=== PATIENT | female | born 1955 | race Caucasian/White ===

== ENCOUNTER → 2017-11-10 | Outpatient (CLI) | payer MEDICARE ==
[~2017-11-10] MED LIST: ALBU3IS INH; ALBU90OI6; ALBU90OI6 INH; AZIT250 PO; BUDE6HFA INH; CALCAVITD PO; CITA20 PO; Calcium 1,2001 EACH PO; ESTNOR PO; FISH1000 PO; GUAI600T33 PO; HYDCHL25 PO; HYDHOMSY PO; HYDR1TAB94 PO; LOSA50 PO; LOSHYD100 PO; MULVIT PO; NAPR500 PO; PRAM.5 PO; PRED10 PO; Pravachol20 MG PO; Prednisone20 MG PO; TIOT18 INH; UBID100 PO; Ventolin5 MG/1 ML INH; Zithromax250 MG PO
[2017-11-10 19:28] LABS: Anion Gap 4 mmol/L (6-16); Blood Urea Nitrogen 16 mg/dL (8-24); Bun/Creatinine Ratio 24.2 (12.0-20.0); CO2, Blood 35 mmol/L (21-32); Calcium, Blood 9.3 mg/dL (8.5-10.1); Chloride, Blood 100 mmol/L (98-108); Creatinine, Blood 0.66 mg/dL (0.40-1.00); Glomerular Filtration Rate >60 (60-); Glucose, Blood 93 mg/dL (70-99); Potassium, Blood 3.7 mmol/L (3.5-5.5); Sodium, Blood 139 mmol/L (136-145)
== END | disposition home or self-care (01) ==
LOC: LAB 17:17 → LAB SHORT 17:17
PROVIDERS: Hospitalist
DX: I10 Essential (primary) hypertension (principal)
CPT/HCPCS: 80048

== ENCOUNTER 2018-09-04 17:46 | Emergency (ER) | payer MEDICARE ==
[~2018-09-04] VITALS: Ht 170.2 cm; Wt 104.3 kg
[2018-09-04 18:24] LABS: Base Excess Venous 23.9 mmol/L; Bicarbonate Venous 44.8 mmol/L (24.0-30.0); PCO2 Venous 74.1 mmHg (38-42); PO2 Venous 66.1 mmHg (38-42); pH Blood Venous 7.42 (7.34-7.37)
[2018-09-04 18:33] LABS: BASOPHILS ABSOLUTE AUTO 0.01 K/mm3 (0.00-0.23); BASOPHILS PERCENT AUTO 0 % (0-2); EOSINOPHILS ABSOLUTE AUTO 0.09 K/mm3 (0.00-0.68); EOSINOPHILS PERCENT AUTO 1 % (0-6); Hematocrit 36.4 % (33.0-51.0); Hemoglobin 10.7 g/dL (11.5-16.0); IMMATURE GRAN ABSOLUTE AUTO 0.04 K/mm3 (0.00-0.10); IMMATURE GRAN PERCENT AUTO 1 % (0-1); LYMPHOCYTES ABSOLUTE AUTO 1.56 K/mm3 (0.84-5.20); LYMPHOCYTES PERCENT AUTO 21 % (21-46); MONOCYTES ABSOLUTE AUTO 0.51 K/mm3 (0.16-1.47); MONOCYTES PERCENT AUTO 7 % (4-13); Mean Corpuscular HGB 30.8 pg (26.0-34.0); Mean Corpuscular HGB Conc 29.4 g/dL (31.5-36.5); Mean Corpuscular Volume 105 fL (80-100); Mean Platelet Volume 8.6 fL (9.1-12.4); NEUTROPHILS ABSOLUTE AUTO 5.13 K/mm3 (1.96-9.15); NEUTROPHILS PERCENT AUTO 70 % (41-73); Platelet Count 262 K/mm3 (150-400); RDW Standard Deviation 50.2 fL (35.1-46.3); Red Blood Cell Count 3.47 M/mm3 (3.80-5.20); White Blood Cell Count 7.34 K/mm3 (4.00-11.30)
[2018-09-04 19:31] LABS: Alanine Aminotransfer (ALT/SGP 24 U/L (12-78); Albumin, Blood 3.3 g/dL (3.4-5.0); Albumin/Globulin Ratio 0.9 (0.8-1.8); Alk Phos 72 U/L (50-136); Anion Gap 2 mmol/L (6-16); Aspartate Aminotrans (AST/SGOT 14 U/L (12-37); Bilirubin, Total 0.3 mg/dL (0.1-1.0); Blood Urea Nitrogen 17 mg/dL (8-24); Bun/Creatinine Ratio 30.5 (12.0-20.0); CO2, Blood 44 mmol/L (21-32); Calcium, Blood 9.5 mg/dL (8.5-10.1); Chloride, Blood 95 mmol/L (98-108); Creatinine, Blood 0.56 mg/dL (0.40-1.00); Globulin, Blood 3.8 g/dL (2.2-4.0); Glomerular Filtration Rate >60 (60-); Glucose, Blood 136 mg/dL (70-99); Sodium, Blood 141 mmol/L (136-145); Total Protein, Blood 7.1 g/dL (6.4-8.2); Troponin I <0.015 ng/mL (0.000-0.040)
[2018-09-04] MEDS ORDERED: Prednisone50 MG PO (19:54)
== END 2018-09-04 20:36 | disposition home or self-care (01) ==
LOC: ER 17:46
PROVIDERS: Emergency Medicine
DX: J44.1 Chronic obstructive pulmonary disease with (acute) exacerbation (principal); Z79.899 Other long term (current) drug therapy; Z79.891 Long term (current) use of opiate analgesic; Z79.52 Long term (current) use of systemic steroids; E78.5 Hyperlipidemia, unspecified; I10 Essential (primary) hypertension; F17.200 Nicotine dependence, unspecified, uncomplicated
CPT/HCPCS: 36415; 71046; 80053; 82803; 83880; 84484; 85025; 93005; 93010; 94640; 94644; 96374; 99284-25; J1100

== ENCOUNTER 2018-12-30 16:33 | Inpatient (IN) | payer MEDICARE ==
[~2018-12-30] VITALS: Ht 170.2 cm; Wt 101.6 kg
[~2018-12-30 16:33] MED LIST changes: +Prednisone50 MG PO
[2018-12-30 16:57] LABS: BASOPHILS ABSOLUTE AUTO 0.02 K/mm3 (0.00-0.23); BASOPHILS PERCENT AUTO 0 % (0-2); EOSINOPHILS ABSOLUTE AUTO 0.06 K/mm3 (0.00-0.68); EOSINOPHILS PERCENT AUTO 1 % (0-6); Hematocrit 40.7 % (33.0-51.0); Hemoglobin 11.6 g/dL (11.5-16.0); IMMATURE GRAN ABSOLUTE AUTO 0.02 K/mm3 (0.00-0.10); IMMATURE GRAN PERCENT AUTO 0 % (0-1); LYMPHOCYTES ABSOLUTE AUTO 1.56 K/mm3 (0.84-5.20); LYMPHOCYTES PERCENT AUTO 19 % (21-46); MONOCYTES ABSOLUTE AUTO 0.77 K/mm3 (0.16-1.47); MONOCYTES PERCENT AUTO 9 % (4-13); Mean Corpuscular HGB 30.4 pg (26.0-34.0); Mean Corpuscular HGB Conc 28.5 g/dL (31.5-36.5); Mean Corpuscular Volume 107 fL (80-100); Mean Platelet Volume 8.7 fL (9.1-12.4); NEUTROPHILS ABSOLUTE AUTO 5.85 K/mm3 (1.96-9.15); NEUTROPHILS PERCENT AUTO 71 % (41-73); Platelet Count 201 K/mm3 (150-400); RDW Standard Deviation 51.8 fL (35.1-46.3); Red Blood Cell Count 3.81 M/mm3 (3.80-5.20); White Blood Cell Count 8.28 K/mm3 (4.00-11.30)
[2018-12-30 17:26] LABS: Alanine Aminotransfer (ALT/SGP 24 U/L (12-78); Albumin, Blood 3.4 g/dL (3.4-5.0); Albumin/Globulin Ratio 0.9 (0.8-1.8); Alk Phos 76 U/L (50-136); Aspartate Aminotrans (AST/SGOT 15 U/L (12-37); Bilirubin, Total 0.3 mg/dL (0.1-1.0); Blood Urea Nitrogen 16 mg/dL (8-24); Bun/Creatinine Ratio 29.6 (12.0-20.0); Calcium, Blood 9.9 mg/dL (8.5-10.1); Chloride, Blood 88 mmol/L (98-108); Creatinine, Blood 0.54 mg/dL (0.40-1.00); Globulin, Blood 3.7 g/dL (2.2-4.0); Glomerular Filtration Rate >60 (60-); Glucose, Blood 103 mg/dL (70-99); Potassium, Blood 3.8 mmol/L (3.5-5.5); Sodium, Blood 137 mmol/L (136-145); Total Protein, Blood 7.1 g/dL (6.4-8.2); Troponin I <0.015 ng/mL (0.000-0.040)
[2018-12-30 17:29] LABS: Anion Gap Unable to Calculate mmol/L (6-16); CO2, Blood >45 mmol/L (21-32)
[2018-12-30 19:10] LABS: pH Blood Venous 7.35 (7.34-7.37)
[2018-12-30 19:11] LABS: Base Excess Venous 32.2 mmol/L; Bicarbonate Venous 52.7 mmol/L (24.0-30.0); PCO2 Venous > 105 mmHg (38-42); PO2 Venous 71.8 mmHg (38-42)
[2018-12-30] MEDS ORDERED: NEBI5 PO (20:41)
--- NOTE | 2018-12-31 07:57 | NUR ---
ADMIT NOTE/SHIFT SUMMARY PATIENT ADMITED FROM THE ER EARLIER THIS SHIFT. PATIENT VERY ANXIOUS AND FIDGITY. PATIENT KEEPS WIGGLING AROUND IN THE BED AND THEN STATES THAT SHE CANNOT BREATH. PATIENT WILL HAVE EPISODES OF SOB WHERE PATIENT GETS VERY PANICY AND YUNIOR OUT ABOUT NEEDING TO SIT UP OR NEEDING MORE OXYGEN BUT WILL NOT STOP TALKING/CRYING OUT TO FOCUS ON BREATHING. PATIENT REFUSING THE BIPAP STATING, "I DON'T LIKE THAT THING." PATIENT CONFUSED AND FORGETFUL AND REQUIRS FREQUENT REORIENTATION. PATIENT STATES, "I KNOW MY THINKING ISN'T RIGHT, IT JUST FEELS WEIRD." PATIENT KEEPS STATING, "I'M NOT COMFORTABLE" BUT WHEN STAFF ASKS WHAT THEY CAN DO TO HELP HER SHE STATES, "I DON'T KNOW, I'M JUST NOT COMFORTABLE." PATIENT UNABLE TO EXPLAIN TO STAFF WHAT SHE NEEDS DONE TO BE MORE COMFORTABLE. PATIENT CURRENTLY ON 3L O2 VIA N/C. PATIEN UP TO THE BSC WITH ONE ASSIST AND DOES BECOME VERY ANXIOUS AND SOB WITH ACTIVITY. THIS MORNING DURING SHIFT CHANGE PATIENT REPORTED THAT THINGS WERE DISAPEARING WHEN SHE TREIED TO TOUCH THEM AND THAT EVERYTHING, "FEELS WEIRD." VITAL SIGNS CHARTED. REPORT GIVEN TO ONCOMING RN.
[2018-12-31 08:48] LABS: BASOPHILS ABSOLUTE AUTO 0.01 K/mm3 (0.00-0.23); BASOPHILS PERCENT AUTO 0 % (0-2); EOSINOPHILS PERCENT AUTO 0 % (0-6); Hematocrit 36.4 % (33.0-51.0); Hemoglobin 10.6 g/dL (11.5-16.0); IMMATURE GRAN ABSOLUTE AUTO 0.03 K/mm3 (0.00-0.10); IMMATURE GRAN PERCENT AUTO 0 % (0-1); LYMPHOCYTES ABSOLUTE AUTO 0.78 K/mm3 (0.84-5.20); LYMPHOCYTES PERCENT AUTO 10 % (21-46); MONOCYTES ABSOLUTE AUTO 0.16 K/mm3 (0.16-1.47); MONOCYTES PERCENT AUTO 2 % (4-13); Mean Corpuscular HGB 29.7 pg (26.0-34.0); Mean Corpuscular HGB Conc 29.1 g/dL (31.5-36.5); Mean Platelet Volume 8.5 fL (9.1-12.4); NEUTROPHILS ABSOLUTE AUTO 6.71 K/mm3 (1.96-9.15); NEUTROPHILS PERCENT AUTO 87 % (41-73); Platelet Count 187 K/mm3 (150-400); RDW Coefficient Variation 12.9 % (11.7-14.2); RDW Standard Deviation 48.4 fL (35.1-46.3); Red Blood Cell Count 3.57 M/mm3 (3.80-5.20); White Blood Cell Count 7.69 K/mm3 (4.00-11.30)
[2018-12-31 08:49] LABS: Mean Corpuscular Volume 102 fL (80-100)
[2018-12-31 09:01] LABS: PCO2 Arterial 97.2 mmHg (35-45); pH Blood Arterial 7.36 (7.35-7.45)
[2018-12-31 09:06] LABS: Blood Urea Nitrogen 19 mg/dL (8-24); Bun/Creatinine Ratio 32.8 (12.0-20.0); Calcium, Blood 9.6 mg/dL (8.5-10.1); Chloride, Blood 90 mmol/L (98-108); Creatinine, Blood 0.58 mg/dL (0.40-1.00); Glomerular Filtration Rate >60 (60-); Glucose, Blood 163 mg/dL (70-99); Potassium, Blood 4.1 mmol/L (3.5-5.5); Sodium, Blood 138 mmol/L (136-145)
[2018-12-31 09:12] LABS: Anion Gap Unable to Calculate mmol/L (6-16)
[2018-12-31 09:30] LABS: CO2, Blood >45 mmol/L (21-32)
--- NOTE | 2018-12-31 14:09 | NUR ---
PT DESATURATING ON O2, PT BACK TO BED, 86-87%, BIPAP PLACED. EDUCATED PT AND FAMILY ON BIPAP AND PT AGREED TO WEAR FOR A SHORT TIME. WILL CONTINUE TO MONITOR.
--- NOTE | 2018-12-31 18:12 | NUR ---
evening note Pt resting quietly on bipap 18/6 with 40% fio2. Volumes are 350+. Sat 88-90%. Resp rate 17 back up rate 12. Lungs decerased t/o. No cough. 2 L n/c when off. Pt given xanax 0.5 mg. She is resting with family at bedside. She will occasionally awaken and pull at the mask. Up to BSC with 1 assist d/t the stuff attached to her. Gait steady. voiding well. Pt has a poor appetite. She did yogurt this afternoon. VSS. COntinue pot.
--- NOTE | 2019-01-01 04:18 | NUR ---
ASSUMED CARE AT 1900 AND VERY LETHARGIC. ATTEMPTED EARLY ON TO ALLOW HER TO MAKE A DECISION ABOUT NEED TO VOID AND GET OUT OF BED TO [facility] [place]. ABSOLUTELY NON DIRECTABLE AND SEVERE WEAKNESS . VOIDED AND UNSTEADY GAIT BACK TO BED. BED AHUJA WILL BE OFFERED TONIGHT. BIPAP TOLERATED AND IS KEEPING IT ON ALL NOC. RESTLES IN BED BUT NOT TAKING OFF MASK. WHEN MASK REMOVED AND A FEW STATEMENTS/ MUMBLES AND CONFUSED. REORIENTED. AND COOPERATIVE IN DIRECTIONS. MOUTH CARE BY STAFF AND TOLERATED VERY WELL. INCONTINENT OF URINE NOW AND SKIN CLEANSED WELL. SOME AREAS OF IRRITATION. NO SKIN BREAKDOWN. CHANGED BIPAP FROM 18/6 TO 18/10 BY ABOUT 2200. MOST OF NOC 35% FIO2 WAS SAT OF 88-92%. ALLOWED TO SLEEP AND NO XANAX NEEDED.SLEEPING VERY WELL. REPOSITIONING AND ATTENDS CHANGE. STIRS AND BACK TO SLEEP . DOES KNOW NAME AND DATE. SR 60'S RATE
[2019-01-01 04:42] LABS: BASOPHILS PERCENT AUTO 0 % (0-2); EOSINOPHILS PERCENT AUTO 0 % (0-6); Hematocrit 36.8 % (33.0-51.0); Hemoglobin 10.7 g/dL (11.5-16.0); IMMATURE GRAN ABSOLUTE AUTO 0.03 K/mm3 (0.00-0.10); IMMATURE GRAN PERCENT AUTO 0 % (0-1); LYMPHOCYTES ABSOLUTE AUTO 0.66 K/mm3 (0.84-5.20); LYMPHOCYTES PERCENT AUTO 10 % (21-46); MONOCYTES ABSOLUTE AUTO 0.24 K/mm3 (0.16-1.47); MONOCYTES PERCENT AUTO 4 % (4-13); Mean Corpuscular HGB 30.4 pg (26.0-34.0); Mean Corpuscular HGB Conc 29.1 g/dL (31.5-36.5); Mean Platelet Volume 8.9 fL (9.1-12.4); NEUTROPHILS ABSOLUTE AUTO 5.94 K/mm3 (1.96-9.15); NEUTROPHILS PERCENT AUTO 87 % (41-73); Platelet Count 205 K/mm3 (150-400); RDW Coefficient Variation 12.9 % (11.7-14.2); RDW Standard Deviation 49.2 fL (35.1-46.3); Red Blood Cell Count 3.52 M/mm3 (3.80-5.20); White Blood Cell Count 6.87 K/mm3 (4.00-11.30)
[2019-01-01 04:45] LABS: Mean Corpuscular Volume 105 fL (80-100)
[2019-01-01 04:57] LABS: Blood Urea Nitrogen 24 mg/dL (8-24); Bun/Creatinine Ratio 42.6 (12.0-20.0); Calcium, Blood 9.3 mg/dL (8.5-10.1); Chloride, Blood 88 mmol/L (98-108); Creatinine, Blood 0.56 mg/dL (0.40-1.00); Glomerular Filtration Rate >60 (60-); Glucose, Blood 115 mg/dL (70-99); Potassium, Blood 3.9 mmol/L (3.5-5.5); Sodium, Blood 139 mmol/L (136-145)
[2019-01-01 05:00] LABS: Anion Gap Unable to Calculate mmol/L (6-16)
[2019-01-01 05:03] LABS: CO2, Blood >45 mmol/L (21-32)
[2019-01-01 05:20] LABS: PCO2 Arterial > 105 mmHg (35-45); PO2 Arterial 68.2 mmHg (80-100); pH Blood Arterial 7.31 (7.35-7.45)
--- NOTE | 2019-01-01 05:39 | NUR ---
PLACED CALL TO DR MONTES DE OCA, NOW, TO INFORM OF CRITICAL PCO2, AND PH. THOSE WERE THE ONLY LABS HE WANTED TO HEAR/ REMINDED PT WAS ON BIPAP ALL NOC AT 35% FIO2 . PT AROUSABLE AND TELLING ME HER NAME AND DATE. SAID , " LETS JUST WATCH HER FOR NOW " MD DID NOT WANT TO GET ANOTHER ABG LATER. RT HAS CHANGED FROM 12/01 TO 16/01. LEFT FIO2 AT 35% WNL SAT 92% NOW . VS WNL
--- NOTE | 2019-01-01 07:00 | NUR ---
SHIFT SUMMARY.MORE ACTIVE IN DESIRING TO REMOVE BIPAP MASK. PER CONFUSION MORE DIFFICULT TO KEEP MASK ON. NOW FAMILY HERE TO ENCOURAGE COOPERATION. SEEMS TO TALK THROUGH MASK AND SETTING OFF ALARMS . SAT 97% . REDUCED FIO2 TO 32%. INSTEAD IF 35%. DISCUSSED W/ DAUGHTER AND SON IN [place] ABOUT THE POSSIBILITY OF INTUBATION AND ANSWERED SOME OF THEIR QUESTIONS BEFORE THE MD TALKS TO FAMILY AND PT. PT HEARS THIS DISCUSSION AND SEEMS CONFUSED ABOUT WHAT STAFF AND FAMILY ARE TALKING ABOUT.
--- NOTE | 2019-01-01 18:37 | NUR ---
EVENING NOTE PT ALERT. SHE HAS DONE AGREAT JOB OG WEARING THE BIPAP TODAY. BREAKS FOR MEALS AND DRINKS. WEARS BIPAP WHEN UP TO THE BSC. VOIDING WELL. EDEMA IN ANKLES HAS RESOLVED. EATING WELL. NO COMPLAINTS OF PAIN. BED ALARM ON R/T INTERMITANT CONFUSION. DR GUZMAN CAME TO SEE PT. HE AHS R/T CHANGE THE BIPAP SETTINGS TO 16/10. PT HAS TOLERATED THE NEW SETTINGS WELL. SHE EVEN STATED THAT SHE LIKED WEARING IT. CONTINUE POT.
--- NOTE | 2019-01-02 06:03 | NUR ---
SHIFT SUMMARY. ASSUMED CARE AT 1900. BIPAP WORN APPROX 7 HR LAST NOC. ON AND OFF SHORTER PERIODS FOR ESCALATING ANXIETY AND MEDS TO HELP AND WHEN BOUTS OF CONFUSION AND NEEDED REASSURANCE AND REMINDERS OF THE [place] PROTOCOL SET UP BY DR GUZMAN AND EDUCATION ABOUT O2 USE AT HER HOME . USUALLY VERY COOPERATIVE IN DESIRE TO WEAR BIPAP MUCH POSSIBLE. NO HS SNACK DESIRED BUT SIPS OF H2O. INCONTINENT A COUPLE OF TIMES IN ATTENDS AND AND NOW GETTING UP TO BSC W/ 2 PERSON ASSIST. AND DESATS ON NC . TOLERATES 2L NC ON BREAKS THIS SHIFT FROM BIPAP OF 35% FIO2. BUT WITH THIS ACTIVITY NC UP TO 6L WHILE UP TO COMMODE. ENC TO GET OUT OF BED W/ BIPAP BUT REFUSED. SO RECOVERY WAS MORE SUCCESSFUL WHEN BIPAP PUT ON IMMEDIATELY, ONCE TALKED INTO IT .UNGT PLACED ON RED CHAPPPED SKIN RC AREA. SR 60'S ALL NOC. POOR AIR FLOW LOWER LUNG BUCKLEY . FEW FAINT CRACKLES. NO REPORT OF PAIN. BUT STIFF AND WEAK WHEN GETTING OUT OUT OF BED.MOSTLY APPROPRIATE MENTATION BUT DOES OCC TALK TO SELF AND THEN REPORTS THAT HER MIND IS CONFUSED AND NOT CLEAR.. REORIENTED AND CALMING EFFECT ACHIEVED. REPORTS SHE IS AWARE OF ESCALATING ANXIOUSNESS DUE TO NOT SMOKING HER 1/2 PACK PER DAY
[2019-01-02 07:45] LABS: PCO2 Arterial 96.6 mmHg (35-45); PO2 Arterial 65.9 mmHg (80-100); pH Blood Arterial 7.39 (7.35-7.45)
--- NOTE | 2019-01-02 08:11 | NUR ---
NOtified of ABG by RT Rosette. Improved, but still critically high CO2. The pt was wearing the bipap all night. AT this time she is taken off of the bipap to eat breakfast, but instructed that she would need to wear it again after eating. She is immediately anxious after taking off the bipap, although she is wanting to eat breakfast. sTates that she cannot breathe. Spo2 is 90% on 2 l/min of n.c. delivery oxgyen. Pt was assisted with comfortable postioning, HOB elevated and set up for breakfast. She is able to complete sentences,taking a breath inbetween phrases. Use of accessory muscles noted but she is able to eat slowly. Sheis asking for coffee.
--- NOTE | 2019-01-02 15:37 | NUR ---
The pt has anxiety when she is taken off of the bipap. She feels that she cannot breathe very well, so she is requiring assistance with meals from family members. spo2 drops to 86-88% without the bipap, on 2 l/min n.c. delivery, only during meals. Otherwise, she has been wearing the bipap all day and has not been out of bed for anything. Elevated blood pressure today was noted during a period of anxiety, now resolved. While wearing the bipap she has not shown anxiety or discomfort. Dietary consultation requested for smaller, more frequent meals/snacks to assist her with her work of breathing during mealtimes.
--- NOTE | 2019-01-02 15:41 | NUR ---
The pt appears to be resting very comfortably, wearing the bipap, in a darkened room. She opens her eyes to me talking quietly and taking her vital signs. No needs expressed at this time.
--- NOTE | 2019-01-02 18:50 | NUR ---
the pt was assisted back on the bipap after eating dinner. She is short of breath after eating, but managed to keep her spo2 at 88-90% while eating with the nasal cannula at 2 l/min O2 delivery, which is better than she was managing before; however, she is still experiencing shortness of breath with minimal exertion when not on the bipap.
--- NOTE | 2019-01-03 | NUR ---
ASSUMED CARE AT 1900. BED AND ATTENDS SOAKED CALL LITE ON TO INFORM STAFF OF VOIDING . BIPAP ON 10/01..35% FIO2. SATS 90-93. PANIC ESCALATING WHEN ASSISTING IN TURN. STAFF DID NOT OFFER FOR OOB TO BSC AT THIS X. REFUSES HS SNACK AND NO FURTHER CARE DESIRED ,. SOME COMFUSION AND REORIENTED. AWARE OF BOUTS OF CONFUSION AND UNCLEAR THOUGHTS. DENIES ANY ACUTE PAIN ISSUES. MOSTLY COMFORTABLE WHILE WEARING BIPAP AND DOZING
[2019-01-03 05:14] LABS: Anion Gap 0 mmol/L (6-16); Blood Urea Nitrogen 32 mg/dL (8-24); Bun/Creatinine Ratio 58.4 (12.0-20.0); CO2, Blood 43 mmol/L (21-32); Calcium, Blood 9.2 mg/dL (8.5-10.1); Chloride, Blood 94 mmol/L (98-108); Creatinine, Blood 0.55 mg/dL (0.40-1.00); Glomerular Filtration Rate >60 (60-); Glucose, Blood 125 mg/dL (70-99); Sodium, Blood 137 mmol/L (136-145)
--- NOTE | 2019-01-03 05:39 | NUR ---
PCU NOC SHIFT SUMMARY ALERT AND ORIENTED TO SELF, LOCATION - CONFUSED TO SITUATION AT TIMES - REOORIENTS EASILY. WOB MODERATELY BETTER T/O SHIFT. PATIENT KEPT BIPAP ON T/O SHIFT. HEART RATE 60'S IN NSR T/O SHIFT. NO ACUTE EVENTS NOTED. PATIENT SLEPT WELL T/O SHIFT. WILL CONTINUE TO MONITOR AND REPORT TO DAYSHIFT RN.
[2019-01-03 07:12] LABS: PCO2 Arterial 95 mmHg (35-45); PO2 Arterial 89.6 mmHg (80-100); pH Blood Arterial 7.32 (7.35-7.45)
--- NOTE | 2019-01-03 07:16 | NUR ---
The pt is wearing the bipap, settings 16/10 and fio2 of 35%. RR 18-19. Blood pressure noted elevated, 168/107, heart rate 75. She appears to be calm, comfortable and has no voiced needs at this time. ABG results called to me by Jael Gonzalez.
--- NOTE | 2019-01-03 07:28 | NUR ---
Coreg and Cozaar given at this time, earlier than scheduled, due to pt's high blood pressure.
--- NOTE | 2019-01-03 08:45 | NUR ---
Dr. Zamudio here to see the pt. Shannan is still wearing the bipap, as she has been sleeping this morning and has not yet had breakfast.
--- NOTE | 2019-01-03 09:06 | NUR ---
Assisted the pt with the bedpan to void, while wearing the bipap. She is requesting a ventolin tx from respiratory care now that she is off the bipap and ready to eat breakfast. Call to Nubia Roach.
--- NOTE | 2019-01-03 10:51 | NUR ---
The pt tolerated being off of the bipap for an hour and half, much longer than yesterday. She was given a ventolin inhaler, which might have made some difference. At this time she was put back on the bipap, to continue decreasing the co2 level, although she was still tolerating the nasal cannula well, spo2 96% on 2 l/min n.c. delivery.
--- NOTE | 2019-01-03 10:52 | NUR ---
Handoff at the bedside to Radha Klein RN.
--- NOTE | 2019-01-03 13:20 | NUR ---
DIFFICULTY TOLERATING BIPAP MACHINE. TAKING BREAKS FROM IT FREQUENTLY. ENCOURAGING USING BIPAP/IMPORTANCE OF IT.
--- NOTE | 2019-01-03 18:02 | NUR ---
HAS BEEN ON BIPAP OFF AND ON T/O DAY. IRRITABLE. HARSH PRODUCTIVE COUGH OF WHITE FROTHY SPUTUM. USING BEDPAN. GEN WEAKNESS R/T RESP STATUS.
--- NOTE | 2019-01-04 05:50 | NUR ---
PCU NOC SHIFT SUMMARY PATIENT ALERT AND ORIENED TO SELF, DATE OF AND SOME SITUAITON DURING BEGINNING OF SHIFT. PATIENT ON BIPAP FOR THE MAJORITY OF SHIFT W/ BREAKS FOR DRINKS AND ORAL CARE. WHEN NOT ON BIPAP PATIENT ON 3 LPM NC. PATIENT IS A CO2 RETAINER AND HAS SEVERE COPD. PATIENT SLIGHTLY MORE CONFUSED AND PULLING OFF BIPAP DURING SHIFT AFTER ATIVAN ADMINISTERED, AND VERBALIZED THAT SHE DID NOT FEEL LIKE HERSELF. PATIENT NOW SLEEPING WITH BIPAP IN PLACE. VSS. NO CARDIAC EVENTS NOTED PER GREASE PACKER AND PATIENT REMAINS IN NSR IN THE 80'S. CALL LIGHT W/I REACH. WILL CONTINUE TO MONITOR AND GIVE REPORT TO DAYSHIFT RN.
--- NOTE | 2019-01-04 09:49 | NUR ---
Initial Visit: Advanced care planning Pt is alert, oriented. History of severe COPD, current smoking status. Pt reports 5/10 pain, however, she states that she is at this level on a chronic basis. She states that she takes Tylenol at home and this seems to manage pain. She does not feel she needs medication support at this time. Pt is short of breath at rest - ADLs are difficult for her. She lives independently with family close by and local. She has one daughter and states that she is an alternative decision maker. Discussed DNR/DNI. Reviewed POLST form. Pt is telling me that she would accept hospice and states strongly that she wants to be at home and not in the hospital when she dies. She states that she DOES want to be on hospice. Her of liver cancer 3 years ago and she had a good experience with hospice services for him. She demonstrates understanding of the service. Pt reports that she does want new equipment in the home to assist with her breathing, however. Although she desires hospice, she would accept intubation if necessary. Reviewed POLST form. She states strongly that she does not want chest compressions. POLST filled out per patient wishes. Pt is friendly and cooperative. She has conflicting wishes as she states she would want hospice and would like to be intubated to help her breathing. She may be still processing terminal diagnosis and struggling with hard decisions. She states, "I know I'm dying, they told me that I'm dying. Why not be at home?" Pt may be comfortable during hospice services to change the POLST form to reflect a more appropriate choice of no intubation at a later time. She belives her family will be angry with her when she choses DNI status, as they are not ready for her to . Her daughter is her alternative decision maker. Reviewed hospice philosophy and hospice medications to contribute to comfort. No other concerns. Reviewed conversation and decisions with nurse Damari. Will remain available.
--- NOTE | 2019-01-04 15:32 | NUR ---
EVENING NOTE PT ALERT AND ORIENTED. SR. NO ECTOPY. VSS. H/L. TOLERATATING BIPAP WELL. PLACED A GEL PAD ON HER NOSE TO PROTECT HER SKIN. PT EXPRESSED IMPROVED COMFORT. PT WEARING BIPAP MORE THAN NOT. MEAL BREAKS. UP TO BSC WITH SBA. GAIT STEADY. TITRATING FIO2 ON BIPAP 32-37% TO KEEP HER SATS 88-91%. DR PATE CAME TO VISIT WITH HER. PT FILLED OUT A NEW POLST THAT IS DNR WITH FULL TREATMENT. PT DAUGHTER IS AWARE OF POLST. PT HAS BEEN TELLING DAUGHTER THAT SHE WANTS TO BE ON HOSPICE. CONTINUE POT.
--- NOTE | 2019-01-04 17:00 | NUR ---
REPORT RECIEVED FROM MASOUD LIN. PT IS SITTING UP IN THE CHAIR VISITING WITH FAMILY AND EATING DINNER. PM MEDS GIVEN. PT DENIES OTHER NEEDS AT THIS TIME. CALL LIGHT IN REACH, WILL CONTINUE TO MONITOR.
--- NOTE | 2019-01-04 18:30 | NUR ---
PT ASSISTED BACK TO BED FROM THE CHAIR. PT DID WELL. PT DENIES NEEDS AT THIS TIME. WILL REPORT TO ONCOMING RN.
[2019-01-05 04:34] LABS: Blood Urea Nitrogen 36 mg/dL (8-24); Bun/Creatinine Ratio 60.8 (12.0-20.0); Calcium, Blood 8.6 mg/dL (8.5-10.1); Chloride, Blood 94 mmol/L (98-108); Creatinine, Blood 0.59 mg/dL (0.40-1.00); Glomerular Filtration Rate >60 (60-); Glucose, Blood 159 mg/dL (70-99); Potassium, Blood 3.8 mmol/L (3.5-5.5); Sodium, Blood 140 mmol/L (136-145)
[2019-01-05 04:36] LABS: Anion Gap Unable to Calculate mmol/L (6-16)
[2019-01-05 04:37] LABS: CO2, Blood >45 mmol/L (21-32)
--- NOTE | 2019-01-05 07:09 | NUR ---
SHIFT SUMMARY PATIENT APPEARS ALERT AND ORIENTED BUT ANXIOUS. PATIENT VERY ANXIOUS ABOUT THE BIPAP LAST NIGHT AND REFUSED TO WEAR IT FOR MOST OF THE NIGHT. PATIENT ENCOURAGED TO WEAR THE BIPAP MUCH POSSIBLE. PATIENT WORE THE BIPAP FOR SHORT 15-20 MINUTE INCREMENTS AND WORE IT FOR APPROX 1 HOUR TWO DIFFERENT TIMES. PATIENT FREQUENTLY REMOVED HER BIPAP, STATING THAT "I JUST CAN'T GET COMFOTABLE WITH IT ON." PATIENT CONTINUED TO BE ANXIOUS ABOUT THE BIPAP AND NOT TOLERATE IT WELL EVEN AFTER ANXIETY MEDICATION WAS PROVIDED. PATIENT APPEARED TO NAP ON AND OFF THROUGHOUT THE NIGHT. VITAL SIGNS CHARTED. PATIENT CURRENTLY RESTING IN BED AND WEARING THE BIPAP. REPORT GIVEN TO ONCOMING RN.
--- NOTE | 2019-01-05 08:00 | NUR ---
TALKED WITH HEATHER IN RT RE:JEMIMA. HE STATES HE IS HEAED INTO THE PATIENTS ROOM NOW TO GET IT DONE.
[2019-01-05 08:25] LABS: PO2 Arterial 78.9 mmHg (80-100); pH Blood Arterial 7.32 (7.35-7.45)
[2019-01-05 08:26] LABS: PCO2 Arterial 102 mmHg (35-45)
--- NOTE | 2019-01-05 08:40 | NUR ---
INITIAL ASSESSMENT: PATIENT IS RESTING WITH EYES CLOSED WITH BI-PAP IN PLACE. PATIENT EASILY AWAKENS TO VERBAL STIMULI. PATIENT IS A LITTLE BIT LETHARGIC. ONCE PATIENT IS OFF THE BI-PAP SHE STATES HER MOUTH IS DRY. WATER PROVIDED. PATIENT IS TEARFUL THIS MORNING, SHE STATES, " THIS IS GOING TO BE A BAD DDAY I CAN JUST TELL. I AM GONNA LEAVE THIS WORLD AND MY FAMILY." PATIENT REASSURED ITS OK TO HAVE A BAD DAY AND WE WILL TRY GIVE HER THE TOOLS SHE NEEDS TO GET THROUGH THE DAY. PATIENT REPORTS SHE IS IN PAIN SHE RATES THIS A 6/10, SHE STATES HER PAIN IS IN HER LOWER BACK. PT REPOSITIONED. HRR. LS DIM T/O. BIOX WNL ON 3L VIA NC. PT IS ALSO ON BI-PAP HER SETTINGS ARE 20/10 FIO2 35% WITH A BACK UP RATE OF 12BPM. ABG IS DONE. CRITICAL RESULTS CALLED TO DR. BECKWITH, SEE NEW ORDERS. RESP TX NOTIFIED SETTINGS CHANGED PER DR. BECKWITH. INSP PRESSURE INCREASED TO 22 AND BACK UP RATE INCREASED TO 14 BPM. PER NOC RN, PT HAS NOT BEEN VERY COMPLIANT WITH THE BI-PAP. PT ONLY TOLERATED THE BI-PAP FOR ABOUT AN HOUR AT A TIME AND THEN WOULD TAKE IT OFF HERSELF. PT EDUCATED RE: ABG RESULTS. PT ENCROUAGED TO WEAR THE BI-PAP MUCH SHE CAN TOLERATE TODAY. PT STATES SHE WOULD LIKE A BREAK TO EAT BREAKFAST AND THEN SHE WILL WEAR IT MORE. BT+. PT STATES SHE HASN'T HAD A BM FOR A COUPLE OF DAYS. BOWEL CARE GIVEN.
--- NOTE | 2019-01-05 09:15 | NUR ---
PT PLACED ON THE BEDPAN TO URINATE.
--- NOTE | 2019-01-05 09:30 | NUR ---
PT OFF THE BED AHUJA. AM MEDS GIVEN AT THIS TIME. PT IS GOING TO EAT BREAKFAST. PT DENIES OTHER NEEDS AT THIS TIME. CALL LIGHT IN REACH. WILL CONTINUE TO MONITOR.
--- NOTE | 2019-01-05 10:30 | NUR ---
PT IS SITTING UP IN BED VISITING WITH FAMILY. PT STATES SHE IS FEELING BETTER NOW THAT HER FAMILY IS HERE. REPORT GIVEN TO GIANNI LIN.
--- NOTE | 2019-01-05 11:12 | NUR ---
ASSUMED CARE OF PT- RECIEVED REPORT FROM GEOSPATIAL APPLICATIONS DEVELOPERRILEY VALVERDE. PER REPORT PT HAS RECIEVED POOR PROGNOSIS FROM THE DR THIS MORNING AND SHE IS CURRENTLY FEELING VERY DOWN ABOUT HER HEALTH. PT C/O ACHES AND PAINS, HOWEVER SEMS TO BE MORE RELATED TO EMOTIONAL STATED RATHER THAN PHYSICAL PAIN, PER REPORT. PT UP VISITING WITH FAMILY AT THIS TIME.
--- NOTE | 2019-01-05 11:48 | NUR ---
CALLED RT- PT MAY NEED A CHIN STRAP WITH THE BIPAP MASK, MACHINE ALARMS OCCASSIONALLY APPEARS LOOSING SEAL AROUND PT MOUTH.
--- NOTE | 2019-01-05 12:47 | NUR ---
PT BI-PAP ALARMED- PT HAD WOKE FROM A NAP AND REMOVED BI-PAP. O2 SATS AT 90 SHE TOOK A DRINK OF WATER AND STAFF REPLACED THE MASK SHE HAD REMOVED. SATS DROPPED TO 80% IN THAT TIME (1-2 MINUTES) PT CURRENTLY ON BI-PAP AND O2 SATS STABLE AT 90%. INSTRUCTED PT TO KEEP THE MASK ON. SHE IS CURRENTLY APPEARS TO BE SLEEPING AGAIN.
--- NOTE | 2019-01-05 17:53 | NUR ---
SHIFT SUMMARY CARED FOR PT FROM 1430 - END OF SHIFT. PT UP TO COMMODE WITH 1 ASSIST. TOLERATING 3L NC OR BIPAP 16/01, 35%. DNR BAND SECURED AROUND L WRIST SINCE ORDER HAS BEEN CHANGED. VSS DURING SHIFT. FAMILY IN/OUT OF ROOM. WILL CONTINUE TO MONITOR AND GIVE BEDSIDE, HANDOFF TO NOC RN.
--- NOTE | 2019-01-05 20:30 | NUR ---
CARE ASSUMPTION PT SITTING UP VISITING W/ FAMILY AT BEDSIDE. PT A&O X4 W/ DEPRESSED AFFECT AT THIS TIME. VSS. SPO2 > 90% ON 3L NC. BIPAP 18/03, FIO2 35% ON STANDBY AT BEDSIDE. WILL CONTINUE TO MONITOR AND PROVIDE CARE.
[2019-01-06 05:25] LABS: PO2 Arterial 89.4 mmHg (80-100)
[2019-01-06 05:26] LABS: PCO2 Arterial > 105 mmHg (35-45); pH Blood Arterial 7.29 (7.35-7.45)
--- NOTE | 2019-01-06 05:48 | NUR ---
SHIFT SUMMARY PT A&O X4. VSS. DNR BAND TO L WRIST. PT ENCOURAGED AND EDUCATED ON WEARING BIPAP CONTINUOUSLY. PT WEARING BIPAP OFF AND ON T/O SHIFT, TAKING BIPAP OFF FOR BREAKS PER PT REQUEST. SPO2 > 90% ON BIPAP OR 2L NC. PT W/ DEPRESSED AFFECT, NOT DESIRING TO DISCUSS CURRENT HEALTH CONDITION THIS SHIFT. SUPPORT AND PRESENCE OFFERED TO PT. PT RESTING T/O SHIFT. BIPAP OFF FOR APPROX 1.5 HR THIS AM, BACK ON AT THIS TIME. WILL CONTINUE TO MONITOR AND PROVIDE CARE UNTIL REPORT OFF TO DAY SHIFT RN.
--- NOTE | 2019-01-06 17:55 | NUR ---
SHIFT SUMMARY PT RESTING IN BED THROUGHOUT THE DAY. ALERT AND ORIENTED X3. UP TO BEDSIDE COMMODE WITH 1-2 PERSON ASSIST. C/O BACK PAIN, LIDOCAINE PATCHES APPLIED, PRN TYLENOL GIVEN. PT TOLERATING BIPAP FAIRLY WELL. LUNG SOUNDS DIMINISHED THROUGHOUT, ON 2L OXYGEN VIA NC, SATURATIONS >90%. PT C/O NOT HAVING A BM, BOWEL CARE ORDERS RECEIVED. MILK OF MAGNESIA OFFERED, PT STATES SHE HAD SMALL AND DID NOT WANT THE MILK OF MAGNESIA. ENCOURAGED TO TAKE STOOL SOFTENER TONIGHT. C/O NUMBNESS TO BILATERAL FEET. NON-PITTING EDEMA TO BLE. FAMILY AT BEDSIDE OFF AND ON THROUGHOUT THE DAY. WHEN PT WAS ALONE, SHE BECAME TEARFUL ABOUT NOT HER ILLNESS, PROVIDED THERAPEUTIC LISTENING. ENCOURAGED HER TO REST AND USE BIPAP WHEN SHE CAN. WILL CONTINUE TO MONITOR AND REPORT OFF TO STRATEGIC PLANNER RN.
--- NOTE | 2019-01-07 04:58 | NUR ---
SHIFT SUMMARY PT A&O X4. VSS. PT WEARING BIPAP /, FIO2 35% MAJORITY OF SHIFT W/ SWITCH TO 3L NC FOR BREAKS. PT CONTINUES TO STATE DISLIKE FOR BIPAP, BUT IS HOWEVER BEING COMPLIANT W/ USE W/ ENCOURAGEMENT FROM STAFF. PT 1 PERSON ASSIST TO BEDSIDE COMMODE, AND ABLE TO ASSIST W/ REPOSITIONING SELF IN BED W/ ENCOURAGEMENT FROM STAFF. PT LOW TOLERANCE FOR ACTIVITY D/T SOB, BUT ABLE TO PARTICIPATE SOME. ENCOURAGING PT TO PARTICIPATE ABLE. PT IN BED W/ CALL LIGHT IN REACH. PRN XANAX GIVEN X1 THIS SHIFT. WILL CONTINUE TO MONITOR AND PROVIDE CARE UNTIL REPORT OFF TO DAY SHIFT RN.
--- NOTE | 2019-01-07 09:41 | NUR ---
Therapeutic Pt visit this AM. Pt resting in bed and reports 6/10 generalized pain. She reports current regimen is managing her pain. Pt reports her dyspnea worsens with speaking. Listened as Pt expresses concerns with her prognosis and feels angry towards God. Pt states she is unsure of direction she wants to go with her goals of care. She reports at this time she plans on staying alive as long as possible. Continued to listened to frustrations and anger towards her situation. This RN vailidated Pt's frustrations. Offered hairspring studder visit and Pt denies need at this time. Left Pt contact information for palliative care and instructed Pt to call with any questions or concerns. Daughter Nimisha arrived in middle of visit. Pt and daughter report no other concerns at this time. Palliative Care will remain available.
--- NOTE | 2019-01-07 12:34 | NUR ---
MID DAY NOTE PT RESTING IN BED THIS AM. UP TO BEDSIDE COMMODE WITH 1 PERSON ASSIST. PT HAD LARGE BM THIS AM. ALERT AND ORIENTED X3. C/O 8/10 BACK PAIN, MEDICATED WITH PRN PAIN MEDS AND LIDOCAINE PATCHES. LUNG SOUNDS DIMINISHED THROUGHOUT. NON-PITTING EDEMA TO BLE. C/O NUMBNESS TO FEET. PT IRRITABLE AT TIMES, BUT RESTING QUIETLY AT LUNCH TIME. WILL CONTINUE TO MONITOR.
--- NOTE | 2019-01-07 18:40 | NUR ---
SHIFT SUMMARY PT RESTING IN BED TODAY. ALERT AND ORIENTED X3. C/O 8/10 BACK PAIN, MEDICATED WITH PRN PAIN MEDS X1. LUNG SOUNDS DIMINISHED THROUGHOUT, DYSPNEA WITH EXERTION AND SOMETIMES AT REST. PT WORE BIPAP PART OF TODAY, BUT STATES SHE SLEPT BETTER WHEN SHE WASN'T ON THE BIPAP. PT UP TO BEDSIDE COMMODE THROUGHOUT THE DAY AND TOLERATED FAIRLY WELL WITH PURSED LIP BREATHING. PT HAD 2 SOFT BMs TODAY. NON-PITTING EDEMA NOTED TO BLE, C/O NUMBNESS TO FEET. NSR RATE 60s ON TELEMETRY. WILL CONTINUE TO MONITOR AND REPORT OFF TO MAIL PROCESSING ASSOCIATE RN.
--- NOTE | 2019-01-07 19:41 | NUR ---
CARE ASSUMPTION PT A&O X4. VSS. SPO2 93% ON 2L NC. DISCUSSED WEARING BIPAP W/ PT W/ PT STATING "I JUST WANT TO BE COMFORTABLE BUT I WANT TO LIVE. THEY NEED TO FIND ME A MASK THAT WORKS. I NEED A MASK THAT DOESN'T MAKE ME FEEL CLAUSTROPHOBIC." PT W/ 4 BIPAP MASKS AT BEDSIDE. DISCUSSED USING AVAILABLE PRN XANAX TO AID W/ BIPAP USE. PT DISCOURAGED BUT AGREEABLE. WILL CONTINUE TO ENCOURAGE AND COMFORT PT.
--- NOTE | 2019-01-07 22:32 | NUR ---
PT UNCOMFORTABLE PT UNABLE TO GET COMFORTABLE IN BED, ASSISTED UP TO RECLINER CHAIR AFTER PT REPORT OF SLEEPING IN RECLINER CHAIR AT HOME. PT LAYING IN RECLINER WEARING BIPAP FOR APPROX 45 MIN AFTER FIRST GIVING PRN XANAX. PT FRUSTRATED STATING, "TAKE IT OFF! I CAN'T DO IT. I CAN'T GET COMFORTABLE." PT SWITCHED BACK TO 2L NC AND ASSISTED BACK TO BED PER PT REQUEST. PT FURTHER STATING, "I HURT ALL OVER. THE BED AND RECLINER ARE TERRIBLE." PT STATING "NOTHING WILL HELP." REPOSITIONING PROVIDED, PILLOWS FOR COMFORT PROVIDED. PAIN MEDICATION OFFERED, PT DECLINED SAYING, "I'M GOOD." PT BACK ON BIPAP. WILL CONTINUE TO MONITOR AND PROVIDE CARE W/ ATTEMPTS TO MAKE/KEEP PT COMFORTABLE ABLE.
--- NOTE | 2019-01-08 05:59 | NUR ---
SHIFT SUMMARY PT A&O X4. VSS. PT SLEEPING ON AND OFF T/O SHIFT, STRUGGLING W/ RESTLESSNESS AND DISCOMFORT. PT CONTINUES TO STRUGGLE W/ TOLERATING BIPAP BUT HAS CONTINUED TO TRY WEARING MASK W/ STAFF ENCOURAGEMENT. PT WEARING BIPAP 22/12, FIO2 35% OFF AND ON T/O SHIFT, OTHERWISE WEARING 2L NC W/ SPO2 > 90%. MONITOR SHOWS NSR, HR 70'S. WILL CONTINUE TO MONITOR AND PROVIDE CARE UNTIL REPORT OFF TO DAY SHIFT RN.
[2019-01-08 08:05] LABS: PO2 Arterial 60.7 mmHg (80-100); pH Blood Arterial 7.41 (7.35-7.45)
[2019-01-08 08:06] LABS: PCO2 Arterial 84.5 mmHg (35-45)
[2019-01-08] MEDS ORDERED: ALPR.25 PO (15:24)
[2019-01-08] MEDS ORDERED: CARV3.125 PO (15:26)
[2019-01-08] MEDS ORDERED: HYDCHL50 PO (15:34)
[2019-01-08] MEDS ORDERED: LOSA50 PO (15:35)
[2019-01-08] MEDS ORDERED: PRED20 PO (15:39)
[2019-01-08] MEDS ORDERED: DOCU100 PO (15:41)
--- NOTE | 2019-01-08 16:10 | NUR ---
Pt visit this afternoon. Pt is resting in bed upon arrival. Family at bedside. Discussed Pt's plan for discharge with hospice. Pt reports still having difficulty with coming to terms with prognosis but is agreeable with hospice. She reports knowing that she can choose to revoke hospice at any time of her choosing. Pt reports no other concerns. Spoke with Jacinto Cheng and discussed case. Plan for Pt to discharge today and [facility] will admit Pt onto services on Tuesday. Spoke with bedside nurse Irma and discussed case. Palliative Care will remain available.
--- NOTE | 2019-01-08 18:05 | NUR ---
PT. DISCHARGED HOME WITH FAMILY ON HOSPICE THROUGH [facility]. TRILIGY C-PAP BROUGHT TO ROOM AND PATIENT AND FAMILY EDUCATED ON THE USE OF THE C-PAP. HOME O2 BROUGHT IN FOR PATIENT TO WEAR HOME. PT. GLAD TO BE GOING BUT STILL DEPRESSED.
== END 2019-01-08 18:13 | disposition hospice, home (50) | DRG 189 ==
LOC: ER 16:33 → PCU 19:38
PROVIDERS: Internal Medicine Critical Care Medicine; Physician Assistant; ADMIT Hospitalist
PROC: 5A09357 Assistance with Respiratory Ventilation, Less than 24 Consecutive Hours, Continuous Positive Airway Pressure (ICD-10-PCS; principal; 2018-12-30)
DX: J96.21 Acute and chronic respiratory failure with hypoxia (principal); G93.41 Metabolic encephalopathy; J44.1 Chronic obstructive pulmonary disease with (acute) exacerbation; J96.22 Acute and chronic respiratory failure with hypercapnia; F41.9 Anxiety disorder, unspecified; E78.5 Hyperlipidemia, unspecified; I10 Essential (primary) hypertension; M54.9 Dorsalgia, unspecified; K59.00 Constipation, unspecified; Z66 Do not resuscitate; E66.01 Morbid (severe) obesity due to excess calories; G47.33 Obstructive sleep apnea (adult) (pediatric); F17.210 Nicotine dependence, cigarettes, uncomplicated; Z79.899 Other long term (current) drug therapy; Z99.81 Dependence on supplemental oxygen
CPT/HCPCS: 36415; 36600; 71045; 80048; 80053; 82803; 83880; 84484; 85025; 93005; 93010; 94640; 94644; 94660; 94762; 96365; 96366; 96367; 96375; 99285-25; A9270; J0456; J0696; J2060; J2405; J2920; J2930; J7050